=== PATIENT | male | born 1960 | race Hispanic/Latino ===

== ENCOUNTER 2024-09-14 16:58 | Emergency (ER) | payer OTHER, SELFPAY ==
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
[2024-09-14 17:09] VITALS: BP 196/116; PULSE 60; RESP 20; TEMP 36.4; O2SAT 99
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
--- OUTSIDE RECORDS SUMMARY | 2024-09-14 19:14 | XMS_ITS | Clinical Summary ---
Author Organization [facility] Address [address] [place] [address] Care Team Providers Care Doughnut Fryer Name Role Phone Mely Jacobs MD Primary Care Provider [phone] Source Comments [facility],non-owned Affiliates and Associated Physician Practices is amultiple site organization consisting of ambulatory clinics and hospital sitesin [place], [place] and [place]. This disclosure is being madepursuant to the Care Everywhere program and may not contain all information available regarding this patient. Last updated 18.[facility] Allergies No known active allergies Medications * Be aware that medications may not be up to date on this document. Alwaysverify current medications with the patient. Medication Sig Dispensed Refills Start Date End Date Status triamcinolone acetonide (KENALOG) 0.1 % ointment Apply to affected area 2 times daily as needed. 15 g 1 09/27/2010 Active Additional Information Patient not taking.Reported on 11/25/2021 HYDROcodone-acetami nophen (NORCO) 5-325 MG tablet Take 1 (one) tablet by mouth every 6 hours as needed for Pain 20 tablet 07/08/2021 Active Additional Information Patient not taking.Reported on 11/25/2021 Active Problems Patient Care Coordination No te Formatting of this note migh t be different from the original. 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 -[employer] [phone] Problem Noted Date Diagnosed Date Hypercholesteremia 10/06/2010 Vitamin D deficiency 10/06/2010 Eczema 09/27/2010 Routine general medical exam ination at a health care facility 09/27/2010 Screening for thyroid disorder 09/27/2010 Screening for lipoid disorders 09/27/2010 Screening for intestinal cancer 09/27/2010 Overview (03/12/2015): Screening for other disorder s of blood and blood-forming organs 09/27/2010 Screening for other and unsp ecified endocrine, nutritional, metabolic, and immunity disorders 09/27/2010 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 Need for Tdap vaccination 09/27/2010 Special screening for malignant neoplasm of pros alford 09/27/2010 Overweight 07/31/2009 Overview (04/19/2015): Amputation of leg 07/31/2009 Allergic rhinitis 07/31/2009 Immunizations Name Administration Dates Next Due TDAP (7yrs+) 09/27/2010 Family History Relation Name Status Comments Brother 7 Alive Father Alive Maternal Grandfather Maternal Grandmother Mother Other 1 2 sons Alive Other 2 2 daughters Alive Paternal Grandfather Paternal Grandmother Sister 2 Alive Social History Tobacco Use Types Packs/Day Years Used Date Smoking Tobacco: Never Alcohol Use Standard Drinks/Week Comments Yes 0 (1 standard drink = 0.6 oz pur e alcohol) social; AUDIT-C Answer Date Recorded Q1: How often do you have a drink containing alc ohol? Never 07/08/2021 Average Number of Drinks Not on file 022 Frequency of Binge Drinking Not on file 06/13 Sex and Gender Information Value Date Recorded Sex Assigned at Not on file Gender Identity Not on file Sexual Orientation Not on file Last Filed Vital Signs Vital Sign Reading Time Taken Comments Blood Pressure 165/104 07/08/2021 4:44 PM OYSTER WORKER Pulse 62 07/08/2021 4:44 PM OYSTER WORKER Temperature 37.2 C (99 F) 07/08/2021 4:44 PM OYSTER WORKER Respiratory Rate 16 07/08/2021 4:44 PM OYSTER WORKER Oxygen Saturation 99% 07/08/2021 4:44 PM OYSTER WORKER Inhaled Oxygen Concentration - - Weight 76.2 kg (168 lb) 07/08/2021 4:44 PM OYSTER WORKER Height 170.2 cm (5' 7 ) 07/08/2021 4:44 PM OYSTER WORKER Body Mass Index 26.31 07/08/2021 4:44 PM OYSTER WORKER Plan of Treatment Health Maintenance Due Date Last Done Comments COLOGUARD (AGES 45-75) - COL ON CA SCREENING 1962 COLON MONITORING 1962 COLONOSCOPY - COLON CA SCREENING 1962 CT COLONOGRAPHY - COLON CA SCREENING 1962 Colorectal Cancer Screening 1962 FIT - COLON CA SCREENING 1962 FLEX SIG - COLON CA SCREENING 1962 HIV SCREENING 1977 HEPATITIS C SCREENING 08/14/1980 PNEUMOCOCCAL VACCINE 50+ (1 of 1 - PCV) 2012 ZOSTER VACCINE (1 of 2) 2012 LIPID TESTING 10/03/2015 10/02/2010 DTAP/TDAP/TD VACCINES (2 - T d or Tdap) 09/27/2020 09/27/2010 SCREENING FOR DIABETES 07/13/2021 10/02/2010 COVID-19 VACCINE (3 - 2023-2 5 season) 2024 11/11/2020, 10/21/2020 DEPRESSION SCREENING 06/12/2024 INFLUENZA VACCINE (Season Ended) 2025 Respiratory Syncytial Virus (RSV) Vaccine Pt: or over 60 yrs (1 - 1-dose 75+ series) 2037 HEPATITIS B VACCINE Aged Out No longe r eligible based on patient's age to complete this topic HIB VACCINE Aged Out No longer eligi ble based on patient's age to complete this topic HPV VACCINE Aged Out No longer eligi ble based on patient's age to complete this topic MENINGOCOCCAL (Group B) VACCINE SHARED DECISION-MAKING Aged Out No longer eligible based on patient's age to complete this topic MENINGOCOCCAL GROUPS A/C/Y/W VACCINE Aged Out No longer eligible b ased on patient's age to complete this topic PNEUMOCOCCAL VACCINE Aged Out No long er eligible based on patient's age to complete this topic Procedures Procedure Name Priority Date/Time Associated Diagnosis Comments COMPREHENSIVE METABOLIC PANEL Routine 10/02/2010 9:04 AM CDT Routine general medical examination at a health care facility LIPID PROFILE Routine 10/02/2010 9:04 AM CDT Screening for lipoid disorders from Last 3 Months or Most Recently Relevant to Health Maintenance Results * COMPREHENSIVE METABOLIC PANEL (10/02/2010 9:04 AM CDT) Glucose 97 65 - 99 mg/dL [facility] ACCOUNT BILL BUN 17 6 - 24 mg/dL [facility] ACCOUNT BILL Creatinine 1.08 0.76 - 1.27 mg/dL [facility] ACCOUNT BILL eGFR by MDRD 81 >59 mL/min/1.7 3 [facility] ACCOUNT BILL eGFR by MDRD 93 >59 mL/min/1.7 3 [facility] ACCOUNT BILL Comment: Note: A persistent eGFR <60 mL/min/1.73 m2 (3 months or more) may indicate chronic kidney disease. An eGFR >59 mL/min/1.73 m2 with an elevated urine protein also may indicate chronic kidney disease. Calculated using CKD-EPI formula. BUN/Creatinine Ratio 16 9 - 20 [facility] ACCOUNT BILL Sodium 138 135 - 145 mmol/L [facility] ACCOUNT BILL Potassium 4.6 3.5 - 5.2 mmol/L [facility] ACCOUNT BILL Chloride 101 97 - 108 mmol/L [facility] ACCOUNT BILL CO2 24 20 - 32 mmol/L [facility] ACCOUNT BILL Calcium 9.6 8.7 - 10.2 mg/dL [facility] ACCOUNT BILL Protein Total 6.9 6.0 - 8.5 g/dL [facility] ACCOUNT BILL Albumin 4.2 3.5 - 5.5 g/dL [facility] ACCOUNT BILL Globulin Total 2.7 1.5 - 4.5 g/dL [facility] ACCOUNT BILL Albumin/Globulin Ratio 1.6 1.1 - 2.5 [facility] ACCOUNT BILL Bilirubin Total 0.5 0.0 - 1.2 mg/dL [facility] ACCOUNT BILL Alkaline Phosphatase 87 25 - 150 IU/L [facility] ACCOUNT BILL AST 23 0 - 40 IU/L [facility] ACCOUNT BILL ALT 34 0 - 55 IU/L [facility] ACCOUNT BILL BLOOD SPECIMEN / Unknown 10/02/2010 9:04 AM CDT 10/02/2010 5:59 PM CDT Narrative Resulting Agency Comment [facility] [address] [id number] Mely Jacobs MD LAB - CHEMISTRY [facility]EL [facility] Organization Address City/State/ZIP Co de Phone Number [facility] ACCOUNT BILL * (ABNORMAL) LIPID PROFILE (10/02/2010 9:04 AM CDT) Cholesterol 215(H) 100 - 199 mg/dL [facility] ACCOUNT BILL Triglycerides 115 0 - 149 mg/dL [facility] ACCOUNT BILL HDL Cholesterol 48 >39 mg/dL [facility] B[facility] Comment: According to ATP-III Guidelines, HDL-C >59 mg/dL is considered a negative risk factor for CHD. VLDL Calculated 23 5 - 40 mg/dL [facility] ACCOUNT BILL LDL Calculated 144(H) 0 - 99 mg/dL [facility] ACCOUNT BILL BLOOD SPECIMEN / Unknown 10/02/2010 9:04 AM CDT 10/02/2010 5:59 PM CDT Narrative Resulting Agency Comment [facility] [address] [id number] Mely Jacobs MD LAB - CHEMISTRY RAQUEL ALBARRAN [facility] ACCOUNT BILL from Last 3 Months or Most Recently Relevant to Health Maintenance Care Teams Doughnut Fryer Relationship Specialty Start Date End Date Mely Jacobs MD PCP - General 07/31/09
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
[2024-09-14] MEDS: IBUPROFEN 400 MG TABLET 800 MG PO (19:59)
[2024-09-14] MEDS: ACETAMINOPHEN 500 MG TABLET 1000 MG PO (19:59)
== END 2024-09-14 22:18 | disposition home or self-care (01) ==
PROVIDERS: Emergency Provider Physician Assistant
DX: S13.4XXA Sprain of ligaments of cervical spine, initial encounter (principal); V43.52XA Car driver injured in collision with other type car in traffic accident, initial encounter
CPT/HCPCS: 72125; 72128; 99284; A9270